=== PATIENT | male | born 1990 | race Two or more races ===

== ENCOUNTER 2018-12-03 18:49 | Emergency (ER) | payer MEDICAID ==
[~2018-12-03] VITALS: Ht 185.4 cm; Wt 94.3 kg
[2018-12-03 21:39] VITALS: BP 116/56
--- NOTE | 2018-12-03 21:41 | NUR ---
Patient discharged to home in stable condition. Written and verbal after care instructions given. Patient verbalizes understanding of instruction.VSS. NO ACUTE PAIN COMPLAIN AT THIS TIME
== END 2018-12-03 21:42 | disposition home or self-care (01) ==
LOC: ER 18:49
DX: S00.33XA Contusion of nose, initial encounter (principal); F12.90 Cannabis use, unspecified, uncomplicated; W50.0XXA Accidental hit or strike by another person, initial encounter; Y93.67 Activity, basketball; Y92.310 Basketball court as the place of occurrence of the external cause; Y99.8 Other external cause status
CPT/HCPCS: 70486-TC

== ENCOUNTER 2021-08-17 14:36 | Emergency (ER) | payer MEDICAID ==
[~2021-08-17] VITALS: Ht 188 cm; Wt 117.9 kg
[2021-08-17 14:36] VITALS: BP 152/95
--- NOTE | 2021-08-17 14:41 | NUR ---
BIBS C/O RIGHT TOE PAIN X 1 MONTH, 11/27 ON PS. PT STATED ABOUT A WEEK AGO IS SWELLED AND WENT DOWN AFTER A HIKE. PT BREATHING IS EVEN AND UNLABORED, NO SOB NOTED.
--- NOTE | 2021-08-17 14:45 | NUR ---
DR RUBIO AT BEDSIDE
--- NOTE | 2021-08-17 15:05 | NUR ---
RADIOLOGY AT BEDSIDE
--- NOTE | 2021-08-17 15:14 | NUR ---
DR RUBIO AT BEDSIDE
--- NOTE | 2021-08-17 15:19 | NUR ---
Patient discharged to home in stable condition. Written and verbal after care instructions given. Patient verbalizes understanding of instruction.
== END 2021-08-17 15:19 | disposition home or self-care (01) ==
LOC: ER 14:40
DX: S90.111A Contusion of right great toe without damage to nail, initial encounter (principal); F17.200 Nicotine dependence, unspecified, uncomplicated; W22.8XXA Striking against or struck by other objects, initial encounter; Y93.01 Activity, walking, marching and hiking; Y92.89 Other specified places as the place of occurrence of the external cause; Y99.8 Other external cause status
CPT/HCPCS: 73660-TC

== ENCOUNTER 2021-09-11 04:15 | Emergency (ER) | payer MEDICAID ==
[~2021-09-11] VITALS: Ht 188 cm; Wt 113.4 kg
[2021-09-11 04:50] VITALS: BP 139/75
--- NOTE | 2021-09-11 05:00 | NUR ---
PT BIBSELF C/O LEFT TESTICULAR PAIN STARTED LAST NIGHT. PT A/O, RR EVEN UNLABORED NO SOB NOTED. PT CONNECTED TO MONITOR.
[2021-09-11] MEDS ORDERED: KETOROLAC TROMETHAMINE 15 MG/ML VIAL ONE (05:10)
--- NOTE | 2021-09-11 05:18 | NUR ---
URINE COLLECTED AND SENT TO LAB
--- NOTE | 2021-09-11 05:20 | NUR ---
URETHRAL SWAB DONE BY FERMIN, SENT TO LAB
[2021-09-11 05:26] LABS: BILIRUBIN,URINE NEGATIVE (NEGATIVE); COLOR,URINE YELLOW (YELLOW); LEUKOCYTE ESTERASE ,URINE NEGATIVE (NEGATIVE); NITRITE, URINE NEGATIVE (NEGATIVE); PROTEIN,URINE NEGATIVE (NEGATIVE); UGLUCOSE NEGATIVE (NEGATIVE); UROBILINOGEN,URINE 0.2 EU/dL (0.2)
[2021-09-11] MEDS ORDERED: KETOROLAC TROMETHAMINE INJ 30 MG/ML VIAL IM ONE (05:30)
[2021-09-11] MEDS ORDERED: IBUP-1957 PO ×2 (05:41→06:26)
--- NOTE | 2021-09-11 05:53 | NUR ---
US TECH AT BEDSIDE
[2021-09-11 06:02] LABS: BACTERIA,URINE None seen /HPF (None Seen); RBC,URINE 0-2 /HPF (0-2); SQUAMOUS EPITHELIAL CELL,UR Few /HPF (None Seen); WBC,URINE 0-2 /HPF (0-3)
[2021-09-11] MEDS ORDERED: DOXY-226 PO (06:26)
[2021-09-11] MEDS ORDERED: CEFTRIAXONE 500 MG VIAL ONE (06:29)
[2021-09-11] MEDS ORDERED: CEFTRIAXONE 500 MG VIAL IM ONE (06:30)
--- NOTE | 2021-09-11 06:56 | NUR ---
Patient discharged to home in stable condition. Rx and Written and verbal after care instructions given. Patient verbalizes understanding of instruction.
== END 2021-09-11 06:57 | disposition home or self-care (01) ==
LOC: ER 04:20
DX: N50.812 Left testicular pain (principal); Z11.3 Encounter for screening for infections with a predominantly sexual mode of transmission; F17.200 Nicotine dependence, unspecified, uncomplicated; Z60.2 Problems related to living alone; Z79.899 Other long term (current) drug therapy
CPT/HCPCS: 76870; 81001; 82962; 87491; 87591; 96372 ×2; 99284; J0696; J1885

== ENCOUNTER 2021-09-30 14:56 | Emergency (ER) | payer MEDICAID ==
[~2021-09-30] VITALS: Ht 188 cm; Wt 99.8 kg
[~2021-09-30 14:56] MED LIST: DOXY-226 PO; IBUP-1957 PO
--- NOTE | 2021-09-30 15:55 | NUR ---
TO ER ROOM 19, WALK IN FROM HOME AOX4 C/O FATIGUE X 2 WEEKS, FEELING FAINT SINCE THIS MORNING, HAVING TROUBLE SLEEPING.
[2021-09-30] MEDS ORDERED: ZOLP5TAB2 PO (16:56)
[2021-09-30] MEDS ORDERED: ESCI5TAB PO (16:56)
--- NOTE | 2021-09-30 17:00 | NUR ---
Patient discharged to home in stable condition. Written and verbal after care instructions given. Patient verbalizes understanding of instruction.
[2021-09-30 17:11] VITALS: BP 152/84
== END 2021-09-30 17:12 | disposition home or self-care (01) ==
LOC: ER 14:57
DX: F41.1 Generalized anxiety disorder (principal); G47.00 Insomnia, unspecified; Z79.1 Long term (current) use of non-steroidal anti-inflammatories (NSAID); Z79.899 Other long term (current) drug therapy; Z60.2 Problems related to living alone

== ENCOUNTER 2024-07-14 14:52 | Emergency (ER) | payer MEDICAID, OTHER ==
[~2024-07-14] VITALS: Ht 188 cm; Wt 89.8 kg
[~2024-07-14 14:52] MED LIST changes: +ESCI5TAB PO; +ZOLP5TAB2 PO
[2024-07-14 17:25] VITALS: BP 124/79; TEMP 98.2; O2SAT 98
== END 2024-07-14 17:26 | disposition home or self-care (01) ==
LOC: ER 14:57
DX: S52.501A Unspecified fracture of the lower end of right radius, initial encounter for closed fracture (principal); M54.50 Low back pain, unspecified; F17.200 Nicotine dependence, unspecified, uncomplicated; W10.9XXA Fall (on) (from) unspecified stairs and steps, initial encounter; Y93.01 Activity, walking, marching and hiking; Y92.89 Other specified places as the place of occurrence of the external cause; Y99.8 Other external cause status
CPT/HCPCS: 72128-TC; 72131-TC; 73130-TC